=== PATIENT | male | born 1960 | race Caucasian/White ===

== ENCOUNTER → 2016-11-07 | Outpatient (REF) | payer OTHER ==
[~2016-11-07] MED LIST: BACT800T OR; No Historical Meds; TYLENOL #3 OR; ocean nasal spray
[2016-11-07 13:30] LABS: INR 1.03
== END ==
LOC: M LAB REF 12:55
PROVIDERS: ATTEND Internal Medicine Medical Oncology
DX: D68.0 Von Willebrand disease (principal)